=== PATIENT | male | born 1990 | race Caucasian/White ===

== ENCOUNTER 2016-09-05 23:49 | Emergency (ER) | payer OTHER ==
[~2016-09-05] VITALS: Ht 170.2 cm; Wt 89.8 kg
[~2016-09-05 23:49] MED LIST: AZITHROMYCIN 2250 MG PO; CLARITIN10 MG PO; PROAIR HFA8.5 GM IH
[2016-09-06] MEDS ORDERED: PREDNISONE 20 M20 MG PO (00:35)
[2016-09-06] MEDS ORDERED: PEPCID40 MG PO (00:35)
[2016-09-06 00:59] VITALS: BP 138/90
[2016-09-06] MEDS ORDERED: VENTOLIN HFA 1818 GM INH (01:00)
== END 2016-09-06 01:00 | disposition home or self-care (01) ==
LOC: ER 23:49
DX: T78.49XA Other allergy, initial encounter (principal); J45.909 Unspecified asthma, uncomplicated; L50.8 Other urticaria; Z88.5 Allergy status to narcotic agent; X58.XXXA Exposure to other specified factors, initial encounter